=== PATIENT | male | born 1985 | race Caucasian/White ===

== ENCOUNTER 2017-12-11 13:03 | Emergency (ER) | payer SELFPAY ==
[~2017-12-11] VITALS: Ht 177.8 cm; Wt 83.0 kg
[2017-12-11 13:07] VITALS: BP 145/90; PULSE 91; RESP 16; TEMP 98.1; O2SAT 99
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
--- NOTE | 2017-12-11 14:17 | RADRPT ---
EXAM DATE: 12/11/2017 2:07 PM EDT AGE/SEX: 32 years / Male INDICATIONS: [place] CLINICAL DATA: This is the patient's initial encounter. Patient reports that signs and symptoms have been present for 1 day and indicates a pain score of 2/10. MEDICAL/SURGICAL HISTORY: None. None. COMPARISON: No prior [place] exams available for comparison. FINDINGS: Suspected mildly comminuted and depressed fracture of the tip of the nasion and right side of the hu al arch. Other visualized osseous structures appear intact. CONCLUSION: Mildly comminuted nasal fracturing on the right. Electronically signed by: Cornelius Gutiérrez MD 12/11/2017 2:16 PM EDT
== END 2017-12-11 15:11 | disposition home or self-care (01) ==
LOC: PHEFT 13:03
DX: S02.2XXA Fracture of nasal bones, initial encounter for closed fracture (principal); Z72.0 Tobacco use; W22.8XXA Striking against or struck by other objects, initial encounter
CPT/HCPCS: 70160; 99283